=== PATIENT | female | born 1985 | race Caucasian/White ===

== ENCOUNTER → 2020-05-13 08:44 | Outpatient (BNVA) | payer OTHER, SELFPAY | PROVIDERS: PCP Nurse Practitioner Family; Visit Provider Surgery | DX: Z01.818 Encounter for other preprocedural examination (principal); E66.01 Morbid (severe) obesity due to excess calories; R06.02 Shortness of breath; Z68.41 Body mass index [BMI] 40.0-44.9, adult | CPT/HCPCS: 99202 ==

== ENCOUNTER 2020-05-24 09:26 | Outpatient (REF) | payer OTHER, SELFPAY ==
--- NOTE | ~2020-05-24 | XR_ITS ---
EXAMINATION: XR CHEST CLINICAL INFORMATION: Shortness of breath COMPARISON: None TECHNIQUE: 2 views of the chest were obtained. FINDINGS: No significant abnormality is noted involving the heart, lungs, mediastinum, bony thorax or soft tissues. XR/XR chest 2V IMPRESSION: Unremarkable chest exam.
[2020-05-24 10:14] LABS: MANUAL DIFF FLAG NO
[2020-05-24 10:22] LABS: Basophils Percent Auto 0.4 % (0-2); Eosinophils Absolute Auto 0.1 X10*3/uL (0.0-0.4); Eosinophils Percent Auto 1.5 % (0-4); Hemoglobin 13.2 g/dl (12.0-16.0); Imm Gran Abs Auto 0.01 X10*3/uL (0.00-0.03); Imm Gran Pct Auto 0.2 % (0.0-0.4); Lymphocytes Percent Auto 21.5 % (20-40); Mean Corpuscular HGB Conc 33.8 g/dl (31.0-35.0); Mean Corpuscular Hemoglobin 27.4 pg (27.0-33.0); Mean Corpuscular Volume 81.1 fL (80-98); Mean Platelet Volume 11.3 fL (9.4-12.3); Monocytes Absolute Auto 0.4 X10*3/uL (0.1-1.2); Monocytes Percent Auto 7.9 % (2-11); Neutrophils Absolute Auto 3.1 X10*3/uL (2.0-8.3); Neutrophils Percent Auto 68.5 % (45-73); Platelet Count 199 X10*3/uL (160-400); Red Blood Count 4.81 X10*6/uL (4.20-5.50); Red Cell Distribution Width 12.9 % (11.0-16.0); White Blood Count 4.6 X10*3/uL (4.8-10.8)
[2020-05-24 10:40] LABS: Estimated Average Glucose 91 mg/dL; Hemoglobin A1c % 4.8 %
[2020-05-24 10:41] LABS: Alanine Aminotransferase 16 U/L (0-31); Albumin Level 4.4 g/dL (3.5-5.0); Alkaline Phosphatase 71 U/L (39-117); Anion Gap 11 (12-20); Aspartate Amino Transferase 17 U/L (5-31); Bilirubin Total 0.8 mg/dL (0.0-1.0); Blood Urea Nitrogen 12 mg/dL (9-16); C Reactive Protein 0.79 mg/dL (< or = 0.50); Calcium 8.9 mg/dL (8.4-10.2); Carbon Dioxide 26 mmol/L (22-29); Chloride 104 mmol/L (96-108); Cholesterol 154 mg/dL; Estimated Glomerular Filt Rate > 60; Glucose Fasting 96 mg/dL (60-99); HDL Cholesterol 34 mg/dL; Iron 62 mcg/dL (30-160); LDL Cholesterol Calculated 110 mg/dl; Percent Iron Saturation 18 % (15-50); Potassium 4.1 mmol/L (3.3-5.1); Sodium 137 mmol/L (135-145); Total Iron Binding Capacity 351 mcg/dL (228-428); Total Protein 7.1 g/dL (6.5-8.0); Triglycerides 54 mg/dL; Unsaturated Iron Binding 289 ug/dL
[2020-05-24 11:05] LABS: Thyroid Stimulating Hormone 1.04 uIU/mL (0.32-4.0)
[2020-05-24 11:25] LABS: Vitamin B12 433 pg/mL (200-900)
[2020-05-25 13:22] LABS: Calcium (PTHI) 9.1 mg/dL (8.6-10.2); PTHI 48 pg/mL (14-64)
[2020-05-26 14:57] LABS: H Pylori Breath Test NOT DETECTED (NOT DETECTED)
[2020-05-26 16:06] LABS: Zinc 70 mcg/dL (60-130)
[2020-05-27 09:17] LABS: Vitamin B1 <6 nmol/L (8-30)
[2020-05-28 23:48] LABS: Vitamin A 28 mcg/dL (38-98)
== END 2020-05-24 09:27 | disposition home or self-care (01) ==
LOC: HO.LAB 09:26
PROVIDERS: PCP Nurse Practitioner Family; Visit Provider Surgery
DX: Z01.818 Encounter for other preprocedural examination (principal); E55.9 Vitamin D deficiency, unspecified; R06.02 Shortness of breath; K91.2 Postsurgical malabsorption, not elsewhere classified; Z90.3 Acquired absence of stomach [part of]
CPT/HCPCS: 36415; 71046; 80053; 80061; 82306; 82607; 83013; 83036; 83540; 83970; 84425; 84443; 84590; 84630; 85025; 86140

== ENCOUNTER → 2020-05-28 08:11 | Outpatient (BNVA) | payer OTHER, SELFPAY | PROVIDERS: PCP Nurse Practitioner Family; Visit Provider Surgery ==

== ENCOUNTER → 2020-05-31 08:25 | Outpatient (BNVA) | payer OTHER, SELFPAY | PROVIDERS: PCP Nurse Practitioner Family; Visit Provider Surgery | DX: E66.9 Obesity, unspecified (principal); Z68.39 Body mass index [BMI] 39.0-39.9, adult | CPT/HCPCS: 99212 ==

== ENCOUNTER → 2020-06-14 08:16 | Outpatient (BNVA) | payer OTHER, SELFPAY | PROVIDERS: PCP Nurse Practitioner Family; Visit Provider Dietitian, Registered | DX: E66.9 Obesity, unspecified (principal); Z68.39 Body mass index [BMI] 39.0-39.9, adult | CPT/HCPCS: 97802 ==

== ENCOUNTER → 2020-07-02 08:50 | Outpatient (BNVA) | payer OTHER, SELFPAY | PROVIDERS: PCP Nurse Practitioner Family; Visit Provider Physician Assistant ==

== ENCOUNTER → 2020-07-09 09:59 | Outpatient (BNVA) | payer OTHER, SELFPAY | PROVIDERS: PCP Nurse Practitioner Family; Referring Provider Nurse Practitioner Family; Visit Provider Physician Assistant ==

== ENCOUNTER 2020-07-29 15:43 | Outpatient (REF) | payer OTHER, SELFPAY ==
[2020-07-29 18:38] LABS: Vitamin D 25-OH Total 27.6 ng/mL (>30)
[2020-08-03 12:57] LABS: Vitamin B1 7 nmol/L (8-30)
[2020-08-03 19:01] LABS: Vitamin A 31 mcg/dL (38-98)
== END 2020-07-29 15:44 | disposition home or self-care (01) ==
LOC: HO.LAB 15:43
PROVIDERS: PCP Nurse Practitioner Family; Referring Provider Nurse Practitioner Family; Visit Provider Surgery
DX: Z01.818 Encounter for other preprocedural examination (principal); E66.9 Obesity, unspecified; E51.9 Thiamine deficiency, unspecified; E50.9 Vitamin A deficiency, unspecified; E55.9 Vitamin D deficiency, unspecified; Z68.36 Body mass index [BMI] 36.0-36.9, adult; Z71.3 Dietary counseling and surveillance
CPT/HCPCS: 36415; 82306; 84425; 84590; 99212

== ENCOUNTER → 2020-09-09 13:52 | Outpatient (BNVA) | payer OTHER, SELFPAY | PROVIDERS: PCP Nurse Practitioner Family; Referring Provider Nurse Practitioner Family; Visit Provider Surgery | DX: E66.9 Obesity, unspecified (principal); Z68.36 Body mass index [BMI] 36.0-36.9, adult | CPT/HCPCS: 99212 ==

== ENCOUNTER → 2020-09-17 13:34 | Outpatient (BNVA) | payer OTHER, SELFPAY | PROVIDERS: PCP Nurse Practitioner Family; Visit Provider Physician Assistant ==

== ENCOUNTER 2020-09-22 10:20 | Inpatient (IN) | payer OTHER, SELFPAY ==
[2020-09-17 10:27] VITALS: BMI 35.7
--- NOTE | 2020-09-17 15:29 | ECG_ITS ---
Test Reason : R06.02 Blood Pressure : / mmHG Vent. Rate : 062 BPM Atrial Rate : 062 BPM P-R Int : 136 ms QRS Dur : 080 ms QT Int : 420 ms P-R-T Axes : 023 036 018 degrees QTc Int : 426 ms Normal sinus rhythm with sinus arrhythmia Normal ECG No previous ECGs available Referred By: Saray Hinojosa Electronically Signed By:WAGNER SORENSEN
[2020-09-17 15:47] LABS: MANUAL DIFF FLAG NO
[2020-09-17 15:50] LABS: Basophils Percent Auto 0.5 % (0-2); Eosinophils Absolute Auto 0.2 X10*3/uL (0.0-0.4); Eosinophils Percent Auto 2.6 % (0-4); Hematocrit 42.3 % (37-47); Hemoglobin 13.9 g/dl (12.0-16.0); Imm Gran Abs Auto 0.01 X10*3/uL (0.00-0.03); Imm Gran Pct Auto 0.2 % (0.0-0.4); Lymphocytes Absolute Auto 1.4 X10*3/uL (1.2-4.9); Lymphocytes Percent Auto 22.2 % (20-40); Mean Corpuscular HGB Conc 32.9 g/dl (31.0-35.0); Mean Corpuscular Hemoglobin 26.8 pg (27.0-33.0); Mean Corpuscular Volume 81.7 fL (80-98); Mean Platelet Volume 10.7 fL (9.4-12.3); Monocytes Absolute Auto 0.7 X10*3/uL (0.1-1.2); Monocytes Percent Auto 12.2 % (2-11); Neutrophils Absolute Auto 3.8 X10*3/uL (2.0-8.3); Neutrophils Percent Auto 62.3 % (45-73); Platelet Count 220 X10*3/uL (160-400); Red Blood Count 5.18 X10*6/uL (4.20-5.50); White Blood Count 6.1 X10*3/uL (4.8-10.8)
[2020-09-17 16:07] LABS: INTERNATIONAL NORM RATIO 1.1 (0.9-1.1); Prothrombin Time 12.5 SEC (9.9-13.0)
[2020-09-17 16:10] LABS: Albumin Level 4.4 g/dL (3.5-5.0); Anion Gap 12 (12-20); Blood Urea Nitrogen 8 mg/dL (9-16); Calcium 9.4 mg/dL (8.4-10.2); Carbon Dioxide 26 mmol/L (22-29); Chloride 103 mmol/L (96-108); Creatinine Clr Calc Pharmacy 123.3; Estimated Glomerular Filt Rate > 60; Glucose Random 90 mg/dL (60-115); Potassium 4.3 mmol/L (3.3-5.1); Sodium 137 mmol/L (135-145)
[2020-09-17 16:43] LABS: Glucose Urine UA NEG (NEG); Leukocyte Esterase Urine 2+ (NEG); Nitrite Urine NEG (NEG); UACC Culture Trigger YES; Urine Blood 2+ (NEG); Urine Ketones NEG (NEG); Urine Protein NEG (NEG-TRACE)
[2020-09-17 16:44] LABS: Appearance Urine HAZY; Color Urine YELLOW
[2020-09-17 16:48] LABS: UPreg QC Valid YES; Urine Pregnancy NEGATIVE (NEGATIVE)
[2020-09-17 17:06] LABS: Bacteria Urine 2+ /LPF; RBC Urine 0-2 /HPF (0); Squamous Epithelial Cell Urine 1+ /LPF
--- NOTE | 2020-09-21 08:29 | P.CONAN_ITS ---
Documented by User: Sofia Duvall NP 09/21/20 08:30 HPI - Anesthesia Eval Consult details Narrative: 35yo F for Gastrectomy Sleeve, EGD, Possible Diaphragmatic Hernia, Possible Ventral Hernia, Poss Open PMFSH Active Problems Active Problems: All Active Problems (Updated 09/17/20 @ 10:32 by Mariella Calderón) Preoperative examination (Acute) Shortness of breath (Acute) Morbid obesity due to excess calories (Acute) BMI 40.0-44.9, adult (Acute) Vitamin D deficiency (Acute) Vitamin B1 deficiency (Acute) Vitamin A deficiency (Acute) Obesity (BMI 30-39.9) (Acute) Obesity (Acute) BMI 39.0-39.9,adult (Acute) Adjustment disorder, unspecified (Acute) Physical exam (Acute) BMI 36.0-36.9,adult (Acute) Past Medical History Medical History Asthma Prediabetes Family History Family History Mother Hypotension Diabetes Insulin dependent diabetes mellitus Father No problems noted. Brother No problems noted. Son No problems noted. Daughter No problems noted. Surgical History Surgical History History of ankle surgery Hx of section Hx of wisdom tooth extraction Social History Social History Are you a primary animal daycare provider to a significant other at home: No Do you presently have visiting nurse or other home services: No Alcohol intake: never Patient Tobacco Use Status: Never used Tobacco Use of substances other than those prescribed or required for medical reasons: No Have you been hit, kicked, punched, or otherwise hurt by someone within the past year? If so, by whom?: No Are you DNR?: No Advance Directives: No Advance Directives Information Provided: No Advance Directives on File: No Recently lost weight without trying: No How much weight loss: 24-33 pounds Eating poorly because of decreased appetite: No Nutrition screen score: 3 Nutrition Risks: No Nutritional Risk Patient : No FDLMP: last week- spotting- : No Meds Allergies Allergy/AdvReac Type Severity Reaction Status Date / Time cefaclor [From [facility]] Allergy Intermediate VOMITING Verified 09/22/20 10:40 Sulfa (Sulfonamide Allergy Intermediate HIVES Verified 09/22/20 10:40 Antibiotics) [SULFA (SULFONAMIDE ANTIBIOTICS)] erythromycin base Allergy Unknown HIVES Verified 09/22/20 10:40 [ERYTHROMYCIN BASE] Penicillins [PENICILLINS] Allergy Unknown HIVES Verified 09/22/20 10:40 Home Medications Medication Instructions Recorded Confirmed Last Taken Type levonorgestrel 20 mcg/24 hours (6 INTRAUTERINE 05/13/20 09/09/20 Unknown History yrs) 52 mg intrauterine device (Mirena) Exam Exam Date and Time: September 21, 2020 0829 Height,Weight and Vital Signs: Height 5 ft 5 in Weight 97.522 kg Pertinent Lab Results Pertinent Lab Results: Laboratory Tests 09/17/20 09/17/20 09/17/20 15:40 15:40 15:40 WBC 6.1 RBC 5.18 Hgb 13.9 Hct 42.3 MCV 81.7 MCH 26.8 L MCHC 32.9 RDW 13.0 Plt Count 220 MPV 10.7 Immature Gran % (Auto) 0.2 Neut % (Auto) 62.3 Lymph % (Auto) 22.2 Barton % (Auto) 12.2 H Eos % (Auto) 2.6 Baso % (Auto) 0.5 Lymph # (Auto) 1.4 Barton # (Auto) 0.7 Eos # (Auto) 0.2 Baso # (Auto) 0.0 Abs Immat Gran (auto) 0.01 Absolute Neuts (auto) 3.8 Absolute Nucleated RBC 0.000 Nucleated RBC % (auto) 0.0 PT 12.5 INR 1.1 APTT 38.0 Sodium Potassium Chloride Carbon Dioxide Anion Gap BUN Creatinine Estim Creat Clear Calc Estimated GFR Random Glucose Calcium Albumin Urine Color YELLOW Urine Appearance HAZY Urine pH 6.0 Ur Specific [place] 1.020 Urine Protein NEG Urine Glucose (UA) NEG Urine Ketones NEG Urine Blood 2+ H Urine Nitrite NEG Ur Leukocyte Esterase 2+ H Urine RBC 0-2 Urine WBC 10-14 H Ur Squamous Epith Cells 1+ Urine Bacteria 2+ Urine Test Blood Type Antibody Screen 09/17/20 09/17/20 09/17/20 15:40 15:40 15:40 WBC RBC Hgb Hct MCV MCH MCHC RDW Plt Count MPV Immature Gran % (Auto) Neut % (Auto) Lymph % (Auto) Barton % (Auto) Eos % (Auto) Baso % (Auto) Lymph # (Auto) Barton # (Auto) Eos # (Auto) Baso # (Auto) Abs Immat Gran (auto) Absolute Neuts (auto) Absolute Nucleated RBC Nucleated RBC % (auto) PT INR APTT Sodium 137 Potassium 4.3 Chloride 103 Carbon Dioxide 26 Anion Gap 12 BUN 8 L Creatinine 0.75 Estim Creat Clear Calc 123.3 Estimated GFR > 60 Random Glucose 90 Calcium 9.4 Albumin 4.4 Urine Color Urine Appearance Urine pH Ur Specific [place] Urine Protein Urine Glucose (UA) Urine Ketones Urine Blood Urine Nitrite Ur Leukocyte Esterase Urine RBC Urine WBC Ur Squamous Epith Cells Urine Bacteria Urine Test NEGATIVE Blood Type A Positive Antibody Screen NEGATIVE Narrative Narrative: EKG 09/2020 Vent. Rate : 062 BPM ? ? Atrial Rate : 062 BPM ?? P-R Int : 136 ms? QRS Dur : 080 ms ? ? QT Int : 420 ms ? ? ? P-R-T Axes : 023 036 018 degrees ?? QTc Int : 426 ms ? Normal sinus rhythm with sinus arrhythmia Normal ECG No previous ECGs available ? Assessment and Plan Assessment Anesthesia Assessment: Chart Reviewed Documented by User: Basilia Clement MD 09/22/20 11:20 [facility] Past Medical History Medical History Asthma Prediabetes Family History Family History Mother Hypotension Diabetes Insulin dependent diabetes mellitus Father No problems noted. Brother No problems noted. Son No problems noted. Daughter No problems noted. Surgical History Surgical History History of ankle surgery Hx of section Hx of wisdom tooth extraction Social History Social History Are you a primary animal daycare provider to a significant other at home: No Do you presently have visiting nurse or other home services: No Alcohol intake: never Patient Tobacco Use Status: Never used Tobacco Use of substances other than those prescribed or required for medical reasons: No Have you been hit, kicked, punched, or otherwise hurt by someone within the past year? If so, by whom?: No Are you DNR?: No Advance Directives: No Advance Directives Information Provided: No Advance Directives on File: No Recently lost weight without trying: No How much weight loss: 24-33 pounds Eating poorly because of decreased appetite: No Nutrition screen score: 3 Nutrition Risks: No Nutritional Risk Patient : No FDLMP: last week- spotting- : No Meds Allergies Allergy/AdvReac Type Severity Reaction Status Date / Time cefaclor [From [facility]] Allergy Intermediate VOMITING Verified 09/22/20 10:40 Sulfa (Sulfonamide Allergy Intermediate HIVES Verified 09/22/20 10:40 Antibiotics) [SULFA (SULFONAMIDE ANTIBIOTICS)] erythromycin base Allergy Unknown HIVES Verified 09/22/20 10:40 [ERYTHROMYCIN BASE] Penicillins [PENICILLINS] Allergy Unknown HIVES Verified 09/22/20 10:40 Home Medications Medication Instructions Recorded Confirmed Last Taken Type levonorgestrel 20 mcg/24 hours (6 INTRAUTERINE 05/13/20 09/09/20 Unknown History yrs) 52 mg intrauterine device (Mirena) Exam Airway Mallampati Class: II TM Dist: >3cm Neck ROM: Full
--- NOTE | 2020-09-21 12:02 | MHC.SHP ---
Pre-Procedural Eval Section A Date of Service: 09/21/20 Section B Chief Complaint: obesity Allergies: Allergies Allergy/AdvReac Type Severity Reaction Status Date / Time cefaclor [From [facility]] Allergy Intermediate VOMITING Verified 09/17/20 10:26 Sulfa (Sulfonamide Allergy Intermediate HIVES Verified 09/17/20 10:26 Antibiotics) [SULFA (SULFONAMIDE ANTIBIOTICS)] erythromycin base Allergy Unknown HIVES Verified 09/17/20 10:26 [ERYTHROMYCIN BASE] Penicillins [PENICILLINS] Allergy Unknown HIVES Verified 09/17/20 10:26 Plan I have reviewed the history and physical and performed a pertinent physical examination on my patient. No changes have occurred unless specified.
[2020-09-22] VITALS (13 sets, daily range): BP systolic 119–159; BP diastolic 67–100; PULSE 63–96; RESP 16–18; TEMP 36.1–36.4; O2SAT 95–100
[2020-09-22 10:59] LABS: UPreg QC Valid YES; Urine Pregnancy NEGATIVE (NEGATIVE)
[2020-09-22 11:07] LABS: COVID-19 Test Negative (Negative)
[2020-09-22] MEDS: Lactated Ringers 1,000 ML 100 ML IVCONT ×2 (11:09→16:54)
[2020-09-22 12:40] LABS: Vitamin B1 29 nmol/L (8-30)
--- NOTE | 2020-09-22 13:06 | PM.OP ---
Brief Operative Note Date of Service: 09/22/20 Pre-op diagnosis: Class 2 obesity, BMI 36.6, asthma, and pre diabetes Post-op diagnosis: other (Same and hiatal hernia) Procedure: Laparoscopic sleeve gastrectomy, hiatal hernia repair, Demetrio block, and intraoperative endoscopy Implants: covidien luh Surgeon: Saray Hinojosa MD Anesthesia: GETA Was an Otr Tanker Truck Driver used for this Procedure?: No Estimated blood loss (mL): 10 Pathology: other (Partial gastrectomy) Condition: stable Disposition: PACU
--- NOTE | 2020-09-22 13:07 | W.PM.OPN ---
Operative Note Operative Note Date of Service: 09/22/20 Narrative: Patient was brought into the operating room and placed on the operating room table in the supine position. General anesthesia was induced. Normal DVT prophylaxis was instituted and the patient received 2 grams of cefotetan preoperatively. The abdomen was then prepped and draped in the normal sterile fashion. A safety time-out was performed. A mixture of 1% lidocaine with epinephrine and ?% Marcaine plain was used to anesthetize the planned incision site in the left upper quadrant. A #11 scalpel was used to make a 5 mm left upper quadrant transverse incision through which a veress needle was placed. Three pops were heard going through the fascia. A saline drop test was used to confirm that the veress needle was intraabdominal. An optiview technique was then used to place a 5mm port in the left upper quadrant. A 5 mm 30 degree laproscope was then placed through this port and the abdominal cavity was surveyed and was normal. The patient was placed in reverse Trendelenburg positioning. A karley liver retractor was then placed in the subxyphoid position and it was used to hold up the left lobe of the liver to the abdominal wall. This was secured to the bed using the liver retractor beltran. A DEDRICK block was then performed for pain control on the right side of the abdomen. A 5 mm port was placed in the right upper quadrant near the falciform ligament. A 12 mm port was then placed in the mid epigastrium. One additional 5 mm port was placed in the left upper quadrant just to the left of the placement of the first port. I then performed a DEDRICK block on the left side of the abdomen. I then removed the epigastric fat pad; there was a small anterior hiatal hernia noted. I reapproximated the left and right crura with a total of 2 stitches of 2-0 ethibond and a laparoscopic knot pusher. There was no residual hiatal hernia. I then opened up the angle of His. We then gained entry into the lesser sac about 4-5 cm from the pylorus. I had anesthesia place a 34 Greenlandic orogastric tube into the distal antrum to use as a sizing tool for gastric pouch size. I divided the short gastric vessels up to the angle of His. We then started the creation of the gastric pouch by firing a 60 mm purple load endostapler up the stomach about 4-5 cm from the pylorus. We completed the creation of the gastric pouch using a total of 4 firings of a 60 mm purple load stapler. We had anesthesia remove the orogastric tube, then we clamped across the distal antrum using a fired 60 mm endostapler. We flattened the patient and then instilled normal saline surrounding the newly created staple line. I then performed an on-table endoscopy. I passed the gastroscopy into the posterior oropharynx and down the esophagus evaluating the esophageal mucosa which was normal. There was no evidence of hiatal hernia. I passed the gastroscope into the gastric pouch and insufflated the gastric pouch. There was healthy pink mucosa and no evidence of active bleeding. There was no evidence of leak on laparoscopy. I desufflated the gastric pouch and removed the endoscope. I removed the endostapler from the abdomen and suctioned the fluid from the left upper quadrant. I then removed the partial gastrectomy specimen through the epigastric 12 mm port site. I reapproximated the 12 mm port using a 0 maxon suture with a laparoscopic suture passer. I instilled local anesthetic into the fascial closure site and tied the suture down at a pressure of 8-10 mm of Hg. There was no residual fascial defect. We removed the liver retractor and the left upper quadrant 5 mm ports under direct visualization. There was no evidence of any active bleeding. I desufflated the abdomen through the last remaining port and removed the laparoscope and 5 mm port. We reapproximated all incisions with a 4-0 monocryl subcuticular stitch. We cleaned and dried the abdominal skin and applied dermabond skin glue. All count were correct at the end of the case. The patient was awake and in stable condition prior to extubation and transfer to the recovery room.
--- NOTE | 2020-09-22 13:11 | PM.DS ---
DS: Providers Provider Date of Service: 09/23/20 Date of admission: 09/22/20 10:20 Date of discharge: 09/23/20 [facility] Admitting clinician: Saray Hinojosa Attending physician on admission: Saray Hinojosa Attending physician on discharge: Saray Hinojosa Discharging clinician: Saray Hinojosa DS: Diagnosis Discharge Diagnosis (1) Status post laparoscopic sleeve gastrectomy: Status: Acute (2) Class 2 obesity: Status: Acute DS: Medications Discharge Medications Home Medications: Home Medications Medication Instructions Recorded Confirmed levonorgestrel 20 mcg/24 hours (6 INTRAUTERINE 05/13/20 09/09/20 yrs) 52 mg intrauterine device (Mirena) Previous Rx's Medication Instructions Recorded acetaminophen 500 mg tablet 1,000 mg PO Q6H PRN #30 tab 09/09/20 (Tylenol Extra Strength) docusate sodium 100 mg capsule 100 mg PO BID #30 cap 09/09/20 (Colace) famotidine 20 mg tablet (Pepcid AC) 20 mg PO DAILY #30 tab 09/09/20 ondansetron HCl 4 mg tablet 4 mg PO Q6H PRN #30 tab 09/09/20 (Zofran) simethicone 80 mg chewable tablet 80 mg PO TID-QID PRN #30 tab 09/09/20 (Gas Relief (simethicone)) DS: Summary Hospital Course Hospital Course: This is a 35-year-old lady who was admitted through the same-day surgery Department on 09/22/2020 and underwent a laparoscopic sleeve gastrectomy and hiatal hernia repair without event. Patient did well and was sent to the surgical floor overnight. She was started on a stage II diet which she tolerated well. On postoperative day 1. The patient was noted to be doing well tolerating stage III diet and vital signs and blood work for postoperative day 1. Were within normal limits. Patient was up and ambulating in the hallway and using incentive spirometer. Patient was then discharged home on postoperative day 1. Status at Discharge Functional status at discharge: independent ambulation Overall status at discharge: patient is back to baseline Time Spent with Patient Time attestation: Total time spent providing and/or coordinating discharge services: Discharge coordination time: Less than 30 minutes Quality: Stroke Does the patient have a stroke diagnosis?: No Physical Exam Vital Signs: Vital Signs: Last Vital Signs Temp 97.4 F 09/22/20 10:56 Pulse 69 09/22/20 10:56 Resp 18 09/22/20 10:56 BP 119/67 09/22/20 10:56 Pulse Ox 98 09/22/20 10:56 Body Mass Index 35.7 DS: Data Data Completed and Pending Labs on day of discharge: Laboratory Results - last 24 hr 09/17/20 09/22/20 09/22/20 15:40 10:30 10:30 Vitamin B1 29 Urine Test NEGATIVE COVID-19 ([facility]) Negative COVID-19 Clin Com See Note Discharge Plan Discharge Patient Disposition: Home, Self-Care Discharge Diagnosis: Class 2 obesity, status post sleeve gastrectomy and hiatal hernia repair Referrals: Hugo Lezama, [employer] [Primary Care Provider] - 1 Week Discharge Medications: Continued Mirena 20 mcg/24 hours (6 yrs) 52 mg intrauterine device intrauterine RF: 0 acetaminophen [Tylenol Extra Strength] 500 mg tablet 1,000 mg PO Q6H PRN (Reason: pain) Qty: 30 RF: 1 famotidine [Pepcid AC] 20 mg tablet 20 mg PO DAILY Qty: 30 RF: 1 simethicone [Gas Relief (simethicone)] 80 mg tablet,chewable 80 mg PO TID-QID PRN (Reason: abdominal distention) Qty: 30 RF: 1 ondansetron HCl [Zofran] 4 mg tablet 4 mg PO Q6H PRN (Reason: nausea and vomiting) Qty: 30 RF: 1 docusate sodium [Colace] 100 mg capsule 100 mg PO BID Qty: 30 RF: 1 Discontinued vitamin A palmitate 10,000 unit tablet 20,000 unit PO DAILY 30 Days Qty: 60 RF: 0 thiamine HCl (vitamin B1) 100 mg tablet 100 mg PO DAILY Qty: 30 RF: 0 Discharge Orders: Discharge Order (Routine); Ordered 09/23/20 Ordered By: Saray Hinojosa Activity on Discharge: No heavy lifting Stand Alone Forms: Patient Portal Discharge page, Work/School Release Activity Restrictions/Additional Instructions: No lifting greater than 5 lbs for the next 4 weeks. No driving within 24 hours of taking narcotic pain medications. If you do not move your bowels in the next 2 days, please take milk of magnesia over the counter or MiraLax. Please follow the post op diet and do not advance your diet until you are seen in the office in about 2 weeks. Please walk around your home every hour or two to prevent blood clots from forming in your legs. You do not need to wake from sleeping to walk. Please sleep in a bed or couch to prevent kinking at the hips and knees. Please take your incentive spirometer (your lung carport erector) home with you and use it for the next few days to prevent pneumonias. You may shower, no hot tubs, baths or swimming pools. Please call the office with any questions or concerns such as increasing abdominal pain, fever, chills, shortness of breath, chest pain, leg pain or swelling, or redness or drainage from your incisions. Please stay on stage 3 diet which includes sugar free clear liquids such as ice pops and jello and broth and crystal light. Avoid all carbonation. Please drink 2-3 protein shakes with at least 20-30 grams of protein daily or 2 of the celebrate 4:1 shakes which can be purchased in our office in addition to 1 other protein shake of your choice. celebrate shakes have all of the bariatric vitamins you need if you consume these shakes. If you are drinking other protein shakes, you will need to order the bariatric vitamin Opurity chewable online, or use the celebrate bariatric vitamin and an additional celebrate calcium daily which will provide all the vitamins you need. You may take the bariatric capsule vitamin in about 1 month. Please make sure you are consuming at least 40- 60 ounces of water in addition to your 2-3 protein shakes daily. You do not need to use the medicine cups to drink year shakes or water following discharge. Just drink slowly in order to ensure that she consume all of your liquids for the day. The medicine cups were only to teach you to drink slowly. They are not required at home. Do not hesitate to contact the office with any questions. Care Plan Goals: Weight loss, achievement of a normal BMI Health Concerns: Class 2 obesity Plan of Treatment: Patient is status post sleeve gastrectomy Assessment: Patient is doing well
--- NOTE | 2020-09-22 13:13 | PM.PNGS ---
Subjective Subjective Date of Service: 09/23/20 Interval history: This is a 35-year-old lady on postoperative day 1. Status post laparoscopic sleeve gastrectomy and hiatal hernia repair doing well. Patient had some nausea overnight but that has resolved. She is tolerating stage III diet without difficulty. Pain is well controlled. Vital signs and blood work are within normal limits for postoperative day 1. She has been ambulating using incentive spirometer. She denies nausea or vomiting. Physical Exam Vital Signs: Vital Signs: Last Vital Signs Temp 97.4 F 09/22/20 10:56 Pulse 69 09/22/20 10:56 Resp 18 09/22/20 10:56 BP 119/67 09/22/20 10:56 Pulse Ox 98 09/22/20 10:56 Body Mass Index 35.7 GI: Other: Abdomen is soft nondistended mild appropriate incisional tenderness. Incisions are clean dry intact with Dermabond in place. Extrem: Other: Warm well-perfused lower extremities bilaterally. There is no tenderness to palpation or edema. Procedures Date of Service Date of Service: 09/23/20 Progress Note: A&P Assessment and plan (1) Status post laparoscopic sleeve gastrectomy: Status: Acute Assessment and Plan: This is a 35-year-old lady on postoperative day 1. Status post laparoscopic sleeve gastrectomy and hiatal hernia repair doing well. Patient is tolerating stage III diet and will be discharged home today to follow up with me again as an outpatient in 2 weeks time frame. (2) History of repair of hiatal hernia: Status: Acute Fall Risk Details Current Medications: Current Medications Generic Name Dose Route Start Last Admin Trade Name Freq PRN Reason Stop Dose Admin Albuterol Sulfate 2.5 mg 09/22/20 10:20 Albuterol Sulfate (0.083%) 2.5 Mg/3 Ml Vial.Neb INHALE ONCE PRN Shortness of Breath/Wheezing Fentanyl 50 mcg 09/22/20 11:20 Fentanyl Citrate/Pf 100 Mcg/2 Ml Vial IVPUSH Q5M PRN Pain, Severe (Pain Scale 7-10) Protocol Lactated Ringer's 1,000 mls @ 100 mls/hr 09/22/20 10:30 09/22/20 11:09 Lr IVCONT 100 mls/hr .Q10H JACOB Administration Ondansetron HCl 4 mg 09/22/20 11:20 Ondansetron Hcl 4 Mg/2 Ml Vial IVPUSH ONCE PRN Nausea and Vomiting Oxycodone HCl 10 mg 09/22/20 11:20 Oxycodone Hcl Immed Release 5 Mg Tablet PO ONCE PRN Pain, Severe (Pain Scale 7-10) Time Spent With Patient Time: Total time spent is greater than 50% in coordination of care (as documented) at patient's floor/unit and/or counseling patient: Time with patient: less than 15 minutes Quality Stroke Does the patient have a stroke diagnosis?: No VTE Prior VTE?: No VTE Risk Level:: Surgical - moderate VTE Device Contraindication: N/A - Device Ordered VTE Drug Contraindication: Treatment Not Indicated
[2020-09-22] MEDS: HYDROmorphone HCl 0.5 MG/0.5 ML SYRINGE IVPUSH (15:40)
[2020-09-22 19:17] LABS: Vitamin A 36 mcg/dL (38-98)
[2020-09-22] MEDS: Famotidine/PF 20 MG/2 ML VIAL IVPUSH (20:27)
[2020-09-22] MEDS: ondansetron HCL 4 MG/2 ML VIAL IVPUSH (20:28)
[2020-09-22] MEDS: 0.9 % Sodium Chloride Flush 3 ML SYRINGE IVFLUSH (20:28)
[2020-09-22] MEDS: Metoclopramide HCl 10 MG/2 ML VIAL IVPUSH (23:14)
[2020-09-23] VITALS: BP 152/89; PULSE 60; RESP 16; TEMP 37; O2SAT 98
[2020-09-23] MEDS: cefoTEtan disodium 2 GM in 0.9 % Sodium Chloride 50 ML IV (01:02)
[2020-09-23] MEDS: Lactated Ringers 1,000 ML 100 ML IVCONT (01:36)
[2020-09-23 04:00] VITALS: BP 149/82; PULSE 61; RESP 16; TEMP 36.9; O2SAT 97
[2020-09-23] MEDS: ondansetron HCL 4 MG/2 ML VIAL IVPUSH (04:26)
[2020-09-23 06:32] LABS: Hematocrit 36.8 % (37-47); Hemoglobin 12.4 g/dl (12.0-16.0); Mean Corpuscular HGB Conc 33.7 g/dl (31.0-35.0); Mean Corpuscular Volume 80.2 fL (80-98); Mean Platelet Volume 10.8 fL (9.4-12.3); Platelet Count 246 X10*3/uL (160-400); Red Blood Count 4.59 X10*6/uL (4.20-5.50); Red Cell Distribution Width 12.9 % (11.0-16.0); White Blood Count 10.7 X10*3/uL (4.8-10.8)
[2020-09-23 07:15] LABS: Anion Gap 13 (12-20); Blood Urea Nitrogen 6 mg/dL (9-16); Calcium 8.5 mg/dL (8.4-10.2); Carbon Dioxide 23 mmol/L (22-29); Chloride 104 mmol/L (96-108); Creatinine Clr Calc Pharmacy 132.1; Estimated Glomerular Filt Rate > 60; Glucose Random 108 mg/dL (60-115); Potassium 4.4 mmol/L (3.3-5.1); Sodium 136 mmol/L (135-145)
[2020-09-23 07:16] VITALS: BP 148/78; PULSE 62; RESP 18; TEMP 36.4; O2SAT 99
[2020-09-23] MEDS: Famotidine/PF 20 MG/2 ML VIAL IVPUSH (07:24)
--- NOTE | 2020-09-23 09:14 | HO.POSTANES ---
Post Anesthesia Evaluation Post Anesthesia Evaluation Vital Signs: Vital Signs Temp Pulse Resp BP Pulse Ox 09/23/20 07:16 97.6 F 62 18 148/78 H 99 09/23/20 04:00 98.4 F 61 16 149/82 H 97 09/23/20 00:00 98.6 F 60 16 152/89 H 98 Anesthesia: General Endotracheal-GETA Mental Status: Awake Pain Control: Satisfactory Nausea/Vomiting: None Hydration: Adequate Anesthesia-Related Issues: No Anes. Related Issues
[2020-09-23] MEDS: Metoclopramide HCl 10 MG/2 ML VIAL IVPUSH (09:18)
--- NOTE | 2020-09-23 09:46 | MHC.CM.PN ---
EMR REVIEWED, PT ADMITTED S/P LAP SLEEVE GASTRECTOMY, PT IS A&OX4, REPORTS SHE LIVES W/ AND 2 CHILDREN, PT IS INDEPENDENT W/ALL CARE, NO DME AND NO HOME SERVICES, PT VERIFIES PCP AND WAS PROVIDED W/EDUCATIONAL INFO REGARDING HCP AND GIVEN BLANK COPY, PT DECLINES TO COMPLETE. PT WOULD LIKE TO LEAVE AT NOON WHEN WILL ARRIVE TO [facility] HER HOME. D/C PLAN: HOME TODAY SELF-CARE, FAMILY TO TRANSPORT. PCP: CHAD AHMADI
== END 2020-09-23 10:00 | disposition home or self-care (01) | DRG 403 ==
LOC: HO.SSSA 14:57 → HO.S3 15:05
PROVIDERS: Nurse Practitioner; Admitting Provider Surgery; PCP Nurse Practitioner Family; Visit Provider Surgery
PROC: 0DB64Z3 Excision of Stomach, Percutaneous Endoscopic Approach, Vertical (ICD-10-PCS; CPT 43845; principal; 2020-09-22 11:40)
DX: E66.8 Other obesity (principal); J45.909 Unspecified asthma, uncomplicated; K44.9 Diaphragmatic hernia without obstruction or gangrene; Z20.822 Contact with and (suspected) exposure to COVID-19; Z68.35 Body mass index [BMI] 35.0-35.9, adult; Z88.0 Allergy status to penicillin; Z88.2 Allergy status to sulfonamides; Z79.899 Other long term (current) drug therapy
CPT/HCPCS: 36415; 80048; 81001; 81025; 82040; 84425; 84590; 85025; 85027; 85610; 85730; 86850; 86900; 86901; 87086; 87635; 88307; 88342; 93005; 99024; C1776; J0131; J1100; J1170; J2250; J2405; J2550; J2765; J3010

== ENCOUNTER → 2020-10-12 15:38 | Outpatient (BNVA) | payer OTHER, SELFPAY | PROVIDERS: PCP Nurse Practitioner Family; Referring Provider Nurse Practitioner Family; Visit Provider Surgery | DX: Z98.84 Bariatric surgery status (principal); Z98.890 Other specified postprocedural states; Z87.19 Personal history of other diseases of the digestive system | CPT/HCPCS: 99212 ==

== ENCOUNTER → 2020-11-02 09:09 | Outpatient (BNVA) | payer OTHER, SELFPAY | PROVIDERS: PCP Nurse Practitioner Family; Referring Provider Nurse Practitioner Family; Visit Provider Surgery | DX: Z98.84 Bariatric surgery status (principal); Z98.890 Other specified postprocedural states; Z87.19 Personal history of other diseases of the digestive system | CPT/HCPCS: 99212 ==

== ENCOUNTER → 2020-11-23 08:00 | Outpatient (BNVA) | payer OTHER, SELFPAY | PROVIDERS: PCP Nurse Practitioner Family; Visit Provider Dietitian, Registered | DX: E66.9 Obesity, unspecified (principal) | CPT/HCPCS: 97803 ==